=== PATIENT | male | born 1980 | race Caucasian/White ===

== ENCOUNTER 2022-05-19 07:00 | Emergency (ER) | payer OTHER ==
[~2022-05-19] VITALS: Ht 165.1 cm; Wt 67.1 kg
[~2022-05-19 07:00] MED LIST: KEFLEX500 MG PO; PERCOCET 5/3251 TAB PO; TAMS0.4C PO; ULTRACET PO
== END 2022-05-19 16:30 | disposition home or self-care (01) ==
LOC: ER 07:00
DX: R10.31 Right lower quadrant pain (principal); K52.89 Other specified noninfective gastroenteritis and colitis; Z88.6 Allergy status to analgesic agent; Z91.013 Allergy to seafood; Z87.442 Personal history of urinary calculi
CPT/HCPCS: 36415; 74177; Q9965

== ENCOUNTER 2022-07-22 09:29 | Emergency (ER) | payer OTHER ==
[~2022-07-22] VITALS: Ht 165.1 cm; Wt 68.0 kg
== END 2022-07-22 16:25 | disposition home or self-care (01) ==
LOC: ER 09:29
DX: K52.9 Noninfective gastroenteritis and colitis, unspecified (principal); Z88.6 Allergy status to analgesic agent; Z91.013 Allergy to seafood; Z20.822 Contact with and (suspected) exposure to COVID-19

== ENCOUNTER 2024-06-24 07:02 | Emergency (ER) | payer OTHER ==
[~2024-06-24] VITALS: Ht 165.1 cm; Wt 63.5 kg
[2024-06-24 09:55] LABS: BASO % 0.3 % (0.1-1.2); EOS # 0.18 (0.04-0.54); EOS % 2.5 % (0.7-7.0); HEMATOCRIT 46.5 % (40.1-51.0); HEMOGLOBIN 15.4 g/dL (13.7-17.5); LYMPH # 1.95 (1.18-3.74); LYMPH % 26.8 % (19.3-53.1); MEAN CORPUSCULAR HEMOGLOBIN 30.7 pg (25.6-32.2); MONO # 0.68 (0.24-0.82); MONO % 9.3 % (4.7-12.5); NEUT # 4.43 (1.56-6.13); NEUT % 60.8 % (34.0-71.1); PLATELET COUNT 214 K/uL (163-369); RED BLOOD COUNT 5.02 M/uL (4.63-6.08); RED CELL DISTRIBUTION WIDTH 12.8 % (11.6-14.4)
[2024-06-24 10:38] LABS: PH,URINE 5.5 (5.0-8.0); URINE APPEARANCE Clear; URINE BILIRRUBIN Negative (NEGATIVE); URINE BLOOD Negative; URINE COLOR Yellow; URINE GLUCOSE Negative (NEGATIVE); URINE KETONE Negative (NEGATIVE); URINE LEUKOCYTE Moderate; URINE NITRATE Negative; URINE PROTEIN Negative (NEGATIVE); URINE UROBILINOGEN 0.2 E.U./dl
[2024-06-24 10:42] LABS: URINE BACTERIA 18.3 uL (0.0-1933); URINE WBC 44.1 uL (0.0-23.2)
[2024-06-24] MEDS ORDERED: DEXAMETHASONE SODIUM PHOSPHATE 4 MG/ML VIAL IM STA (10:58)
[2024-06-24 10:59] LABS: BILIRUBIN TOTAL 0.84 mg/dL (0.3-1.2); BILIRUBIN,CONJUGATED 0.15 mg/dL (0.0-0.2); BILIRUBIN,UNCONJUGATED 0.69 mg/dL (0.0-0.6); CALCIUM 8.7 mg/dL (8.5-10.1); CREATININE SERUM 1.16 mg/dL (0.70-1.30); GFR 69.04; POTASSIUM 4.09 mEq/L (3.5-5.1)
[2024-06-24 11:10] LABS: URINE CAST 1.32 uL (0.0-1.40); URINE EPITHELIAL CELLS 0.9 uL (0.0-38.8); URINE RBC 0.8 uL (0.0-20.8)
== END 2024-06-24 12:00 | disposition home or self-care (01) ==
LOC: ER 07:02
PROVIDERS: General Practice
DX: R36.9 Urethral discharge, unspecified (principal); R30.0 Dysuria; Z88.6 Allergy status to analgesic agent; Z91.013 Allergy to seafood